=== PATIENT | female | born 1955 | race Two or more races ===

== ENCOUNTER 2016-12-23 15:19 | Emergency (ER) | payer OTHER ==
--- NOTE | ~2016-12-23 | EKG ---
PATIENT: TANNER RAMESH UNIT #: [id number] Ventricular Rate: 153 BPM Atrial Rate: 150 BPM QRS Duration: 96 ms Q-T Interval: 308 ms QTC Calculation(Bezet): 491 ms Calculated R [place]: -39 degrees Calculated T [place]: 66 degrees Diagnosis Line: Supraventricular tachycardia Diagnosis Line: Left axis deviation Diagnosis Line: Abnormal ECG Diagnosis Line: When compared with ECG of 01-AUG-2016 16:24, Diagnosis Line: Vent. rate has increased BY 82 BPM Diagnosis Line: Non-specific change in ST segment in Lateral leads Diagnosis Line: Nonspecific T wave abnormality no longer evident Diagnosis Line: in Anterior leads Diagnosis Line: Confirmed by OSCAR HICKMAN MD ([id number]) on 12/23/2016 Diagnosis Line: 4:43:51 PM INTERPRETING MD: MARYLOU CHI
--- NOTE | ~2016-12-23 | CR72 ---
[facility] RADIOLOGY TEXT RESULTS PATIENT: TANNER RAMESH LOCATION: [facility] : 57 UNIT #: [id number] AGE: [address]: Beto Ibarra MD SEX: F ORDER DR: [id number] [facility] [address] [place], [place] [address] [id number] E MR#: [id number] Acc #: [id number] NAME: TANNER RAMESH : 1955 SEX: F STUDY DATE/TIME: 12/23/2016 14:59 UNIT: [facility] ROOM: STUDY DESCRIPTION: CR Chest Single View Portable Attending Physician: Bteo Ibarra M.D. Ordering Physician: Beto Ibarra M.D. Primary Care Physician: Generic Doctor Not In System MEDICAL IMAGING REPORT This report is preliminary unless electronic signature is present EXAM AP radiograph chest, 12/23/2016 HISTORY Chest pain, palpitations. FINDINGS AP left anterior oblique view chest presented with comparison 08/01/16. No acute bony abnormality. Levoscoliosis stable. There is probably exaggerated kyphosis which also appears stable. Mild cardiac enlargement is unchanged. Lung volumes lower than on prior study with central bronchovascular crowding. Central pulmonary vessels are mildly prominent, and this is probably due to the low lung volumes. There is no compelling evidence of vascular congestion. There are patchy densities in the bilateral infrahilar regions, left greater than right. Given the low lung volumes, atelectasis is a consideration. Bibasilar infrahilar pneumonitis or developing pneumonia, particularly on the left, could be considered as well. No dense airspace disease, pleural effusion or pneumothorax and no suspicious nodule. Dictated by... Cornell Mak M.D. THIS IS AN ELECTRONICALLY VERIFIED REPORT Cornell Mak M.D. at 12/24/2016 1:54 PM Mayra TD: 12/23/2016 20:00 JOB #: [id number] [facility] RADIOLOGY TEXT RESULTS PATIENT: TANNER RAMESH LOCATION: [facility] #: [id number] : 57 UNIT #: [id number] AGE: [address]: Beto Ibarra MD SEX: F ORDER DR: MEDICAL IMAGING REPORT Page 1 of 1 COPY
[2016-12-23 14:23] LABS: BASOPHIL% 0.6 % (0-2.5); DIFF IND NO; EOSINOPHIL# 0.1 X10e3 (0-0.7); EOSINOPHIL% 1.9 % (0.0-7.0); HEMATOCRIT 44.5 % (35.0-45.0); HEMOGLOBIN 14.9 gm/dL (12.0-16.0); LYMPHOCYTE# 2.3 X10e3 (1.0-3.5); LYMPHOCYTE% 34.1 % (17.0-45.0); MEAN CELL VOLUME 89.1 FL (83-96); MEAN CORPUSCULAR HEMOGLOBIN 29.8 PG (28-34); MEAN CORPUSCULAR HGB CONC 33.5 g/dL (30-36); MEAN PLATELET VOLUME 9.4 FL (6.5-11.5); MONOCYTE# 0.3 X10e3 (0-1.0); MONOCYTE% 4.6 % (3.0-12.0); NEUTROPHIL% 58.8 % (40-75); PLATELET COUNT 154 X10e3 (140-420); RED CELL DISTRIBUTION WIDTH 13.2 % (11.0-15.5); WHITE BLOOD COUNT 6.8 X10e3 (4.0-10.5)
[2016-12-23 14:57] LABS: ALBUMIN SERUM 4.1 g/dL (3.5-5.0); BILIRUBIN, DIRECT 0.1 mg/dL (0.0-0.2); BILIRUBIN,INDIRECT 0.4 mg/dL (0.0-0.9); BILIRUBIN,TOTAL 0.5 mg/dL (0.2-2.0); BUN/CREATININE RATIO 31.42; CALCIUM SERUM 9.3 mg/dL (8.4-10.2); CREATININE SERUM 0.7 mg/dL (0.6-1.4); GLOM FILT RATE Estimated 94.2 mL/min (>60); POTASSIUM 4.4 mmol/L (3.5-5.1); PROTEIN TOTAL SERUM 7.7 g/dL (6.0-8.3)
[~2016-12-23 15:19] MED LIST: BACTRIM DS TABL1 TA1 PO; BLEPH-105 M1 OU; CLOBETASOL PROP15 G1 TP; OMEPRAZOLE40 MG PO; PEPCID40 MG PO; PHENERGAN25 MG PO; PYRIDIUM100 MG PO
== END 2016-12-23 16:36 | disposition home or self-care (01) ==
LOC: CED 15:19
DX: I47.1 Supraventricular tachycardia (principal); E11.9 Type 2 diabetes mellitus without complications; E78.5 Hyperlipidemia, unspecified; Z88.0 Allergy status to penicillin; Z79.899 Other long term (current) drug therapy
CPT/HCPCS: 36415; 71010; 80048; 80076; 84484; 85025; 93005; 96361; 96374; 99284; J0153